=== PATIENT | male | born 1940 | race Caucasian/White ===

== ENCOUNTER → 2023-01-11 11:12 | Outpatient (BNVA) | payer MEDICARE, SELFPAY | PROVIDERS: PCP Internal Medicine; Visit Provider Orthopaedic Surgery | DX: M17.0 Bilateral primary osteoarthritis of knee (principal) | CPT/HCPCS: 20610; 99212; J3301 ==

== ENCOUNTER 2023-10-18 13:25 | Outpatient (AMB) | payer MEDICARE, SELFPAY ==
--- NOTE | 2023-10-18 13:30 | MHC.OFFVIS ---
Intake Vital Signs 10/18/23 13:33 Height 5 ft 9 in Weight 186 lb BMI 27.5 Intake Visit Reasons: OV-B/L knee pain-follow up Intake Note: John is a 82 year old male who presents with bilateral knee pain. Patient reports he had bilateral knee injections on 01/11/2023 and it gave him good relief. He would like to repeat the bilateral injections. He has taken Tylenol which gives him mild relief. He is not able to take anti-inflammatory medicines because he is on Eliquis. He wishes to hold off on surgery for as long as possible. Allergies Seasonal Allergies Adverse Reaction (Verified 10/18/23 13:35) Sneezing [facility] Social History (Updated 01/11/23 @ 11:28 by Isela Vogel [facility]) Current occupational status: retired Physical Exam Vital Signs: BMI result Body Mass Index 27.5 Const Other: Well-nourished well-developed very friendly male awake alert and oriented x3 in no acute distress Extrem Other: Bilateral lower extremity examination shows good capillary refill, no skin lesions noted, normal sensation light touch Bilateral knee examination shows minimal effusions, palpable crepitus with range of motion, pain with range of motion, range of motion from -3 degrees to 115 degrees, no instability Office Procedures Joint Injection/Drain Joint Injection/Drain Primary Site: left knee Prep: site was prepped using aseptic technique Injected: 40 mg of, DepoMedrol and 1% plain lidocaine Procedure: The patient tolerated the procedure well Coding 55546 - Large joint Procedure code (CPT) selection complete Joint Injection/Drain Joint Injection/Drain Primary Site: right knee Prep: site was prepped using aseptic technique Injected: 40 mg of, DepoMedrol and 1% plain lidocaine Procedure: The patient tolerated the procedure well Coding 13528 - Large joint Procedure code (CPT) selection complete Assessment & Plan Assessment & Plan (1) Arthritis of both knees: Code(s): M17.0 - Bilateral primary osteoarthritis of knee (2) Arthritis of left knee: Code(s): M17.12 - Unilateral primary osteoarthritis, left knee (3) Arthritis of right knee: Code(s): M17.11 - Unilateral primary osteoarthritis, right knee Plan Mr. Mcknight presents with bilateral knee pains due to degenerative joint disease. I had a lengthy discussion with the patient regarding the treatment options. Wishes to hold off on surgery for as long as possible. I agree with this plan. The risks and benefits of bilateral knee cortisone injections were discussed at length with the patient. The patient wished to proceed. He tolerated the injections well. I also gave him a prescription to go to formal physical therapy here at [facility]. Will follow-up as instructed. He will follow up with me on an as-needed basis should his symptoms not plateau at an unacceptable level over the next few months. Feel free to call me at any time should questions regarding his orthopedic management arise. I spent 22 minutes in reviewing the patient's records and imaging studies, seeing the patient and documenting in the medical record. Orders: Orders PT Evaluation and Treatment Today M17.0 - Bilateral primary osteoarthritis of knee, R53.81 - Other malaise AMB Joint Injection/Aspiration Today M17.12 - Unilateral primary osteoarthritis, left knee AMB Joint Injection/Aspiration Today M17.11 - Unilateral primary osteoarthritis, right knee Coding Level of Care Code Est Pt Level 2 (39320) Diagnoses Arthritis of both knees M17.0 Arthritis of left knee M17.12 Arthritis of right knee M17.11 CPT Codes Coding - 47644 Large joint: 10998 - Large joint ([id number]) Coding - 25766 Large joint: 06324 - Large joint ([id number])
[2023-10-18 13:33] VITALS: BMI 27.5
== END 2023-10-18 14:04 | disposition home or self-care (01) ==
PROVIDERS: PCP Internal Medicine; Visit Provider Orthopaedic Surgery
DX: M17.0 Bilateral primary osteoarthritis of knee (principal)
CPT/HCPCS: 20610; 99213

== ENCOUNTER → 2023-10-18 13:25 | Outpatient (BNVA) | payer MEDICARE, SELFPAY | PROVIDERS: PCP Internal Medicine; Visit Provider Orthopaedic Surgery | DX: M17.0 Bilateral primary osteoarthritis of knee (principal) | CPT/HCPCS: 20610; 99212; J1020 ==

== ENCOUNTER 2023-12-19 14:00 | Outpatient (RCR) | payer MEDICARE, SELFPAY ==
--- NOTE | 2023-11-14 16:27 | MHC.PT.EP ---
[facility] [place] Office [place] Office [place] Office [address] [place] [address] [phone] F: [phone] F: [phone] F: [phone] F: [phone] Physical Therapy Plan of Care Date of Evaluation: 11/14/23 Date of Surgery: NA Diagnosis: B OA KNEES, MENISCUS TEARS B Assessment: Pt IS 82 YO M REFERRED TO PT FROM [facility] (DR LUNDBERG) WITH B KNEE OA. 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 PRESENTS WITH LIMITED R LE STRENGTH, BALANCE ISSUES, ANTALGIC GT, LIMITED KNEE ROM AND EDEMA (?LYMPHEDEMA/CARDIAC HX). HAS HAD PT IN PAST FOR HIS KNEES WITH GOOD RESULTS. SHOULD BENEFIT FROM PT TO ADDRESS THESE ISSUES. MAY NEED AFO R ANKLE Frequency and Duration: The patient will be seen 2X/WK X 4 WKS THEN 1X/WK X 4 WKS Short Term Goals: 1. INCREASED AWARENESS POSTURE/KNEE CARE 2. INCREASED KNEE FLEXION ROM 5 DEGREES EACH 3. IMPROVED GT PATTERN WITH ROLLATOR Custodial Goals: 1. I HEP WITH DC EX PLAN 2. INCREASED L LE STRENGTH 1/2 MM GRADE 3. DECREASED KNEE PAIN ('EDEMA PAIN ) Treatment Plan: Modalities to reduce pain, spasms and effusion. Manual therapy to restore motion and function. Therapeutic exercise to improve strength and flexibility. Neuromuscular re-education for posture and balance. Therapeutic activities to return to functional activities of daily living. Electronically signed by: VALDO KING PT Please sign and return to therapist. Thank you for your referral.
--- NOTE | 2024-02-19 15:39 | MHC.PT.DC ---
[facility] [place] Office [place] Office [place] Office [address] [place] [address] [phone] F: [phone] F: [phone] F: [phone] F: [phone] Physical Therapy Discharge Report Diagnosis: B OA KNEES, MENISCUS TEARS B Date of Surgery: NA Date of Evaluation: 11/14/23 Date of Discharge: 02/19/24 Treatments to Date: 5 Cancellations to Date: No Shows to Date: Discharge Status: Achieved Goals Improved Function Independent with HEP Patient Elected to Stop Discharge Summary: PER ASSESSMENT FROM LAST NOTE ON 12/19/23 TODAY WAS Pt'S LAST SCHEDULED VISIT. HAS MET SOME PT GOALS, REPORTS OVERALL IMPROVEMENT. HE WOULD LIKE TO KEEP CHART OPEN AND TRY TO WORK ON EXS THEN CALL FOR FU IF NEEDED NO FURTHER APPTS SCHEDULED Electronically signed by: VALDO KING PT Please sign and return to therapist. Thank you for your referral.
== END 2024-02-19 15:40 | disposition home or self-care (01) ==
LOC: HO.PT 14:00
PROVIDERS: PCP Internal Medicine; Visit Provider Orthopaedic Surgery
DX: M17.0 Bilateral primary osteoarthritis of knee (principal); R53.81 Other malaise
CPT/HCPCS: 97110; 97162; 97535

== ENCOUNTER 2024-01-18 13:36 | Outpatient (AMB) | payer MEDICARE, SELFPAY ==
--- NOTE | 2024-01-18 13:37 | MHC.OFFVIS ---
Vital Signs 01/18/24 13:38 Height 5 ft 9 in Weight 186 lb BMI 27.5 Intake Visit Reasons: OV-B/L knee pain-follow up Intake Note: Mr. Mcknight presents with complaints of progressively worsening bilateral knee pains. He describes his pains as sharp and severe in nature. His pains have gotten worse over the last year in spite of continued non operative treatments. He has failed the last 3 months of a home exercise program. He has tried Tylenol which gives him minimal relief. He is not able to take anti-inflammatory medicines because he is on Eliquis. He did have a set of cortisone injections given into his knees earlier this year which gave him no relief. He has not had a viscosupplementation injection. He wishes to hold off on total knee replacement surgery if at all possible. Allergies Seasonal Allergies Adverse Reaction (Verified 01/18/24 13:40) Sneezing Medication List - Last Reconciled 01/19/24 by Jaspal Blood MD apixaban (Eliquis) 5 mg PO BID finasteride 5 mg PO DAILY furosemide (Lasix) 20 mg PO DAILY tamsulosin 0.4 mg PO DAILY [facility] Social History Current occupational status: retired Physical Exam Vital Signs: BMI result Body Mass Index 27.5 Const Other: Well-nourished well-developed very friendly male awake alert and oriented x3 in no acute distress Extrem Other: Bilateral lower extremity examination shows good capillary refill, no skin lesions noted, normal sensation light touch Bilateral knee examination shows minimal effusions, palpable crepitus with range of motion, pain with range of motion, range of motion from -3 degrees to 110 degrees, no instability Results Reviewed Results Reviewed: X-rays of the patient's bilateral knee show joint space narrowing, subchondral sclerosis, no acute bony abnormalities Assessment & Plan Assessment & Plan (1) Arthritis of right knee: Code(s): M17.11 - Unilateral primary osteoarthritis, right knee Category: Medical (2) Arthritis of left knee: Code(s): M17.12 - Unilateral primary osteoarthritis, left knee Category: Medical Plan Mr. Mcknight presents with bilateral knee pains due to degenerative joint disease. I had a lengthy discussion with the patient regarding the treatment options. He wishes to hold off on total knee replacement surgery for as long as possible. I agree with this plan. Has not gotten good relief from cortisone injections in the past. Thus, I will see whether or not the patient's insurance company will cover a viscosupplementation injection for both of his knees. I will see him back once the injections are available. Feel free to call me at any time should questions regarding his orthopedic management arise. I spent 22 minutes in reviewing the patient's records and imaging studies, seeing the patient and documenting in the medical record. Coding Level of Care Code Est Pt Level 3 (14677) Diagnoses Arthritis of right knee M17.11 Arthritis of left knee M17.12
[2024-01-18 13:38] VITALS: BMI 27.5
== END 2024-01-18 14:05 | disposition home or self-care (01) ==
PROVIDERS: PCP Internal Medicine; Visit Provider Orthopaedic Surgery
DX: M17.0 Bilateral primary osteoarthritis of knee (principal)
CPT/HCPCS: 99213

== ENCOUNTER → 2024-01-18 13:36 | Outpatient (BNVA) | payer MEDICARE, SELFPAY | PROVIDERS: PCP Internal Medicine; Visit Provider Orthopaedic Surgery | DX: M17.0 Bilateral primary osteoarthritis of knee (principal) | CPT/HCPCS: 99212 ==

== ENCOUNTER 2024-02-28 11:42 | Outpatient (AMB) | payer MEDICARE, SELFPAY ==
--- NOTE | 2024-02-28 11:43 | A.OFFVIS_ITS ---
Intake Visit Reasons: B/L Durolane Knee Injection Intake Note: Clint is a 83 year old male who presents with complaints of bilateral knee pains. He describes his pains as sharp in nature. His pains have gotten worse over the last few years in spite of continued non operative treatments. He wishes to hold off on surgery for as long as possible. He has had cortisone injections. The most recent set of injections gave him minimal relief. Has also done physical therapy exercises which aggravated his pain. Has tried Tylenol which gives him minimal relief. He can not take anti-inflammatory medicines because he is on Eliquis. Allergies Seasonal Allergies Adverse Reaction (Verified 02/28/24 11:43) Sneezing Medication List - Last Reconciled 02/29/24 by Jaspal Blood MD apixaban (Eliquis) 5 mg PO BID finasteride 5 mg PO DAILY furosemide (Lasix) 20 mg PO DAILY tamsulosin 0.4 mg PO DAILY PFSH Social History Current occupational status: retired Physical Exam Const Other: Well-nourished well-developed very friendly male awake alert and oriented x3 in no acute distress Extrem Other: Bilateral lower extremity examination shows good capillary refill, no skin lesions noted, normal sensation light touch Bilateral knee examination shows minimal effusions, palpable crepitus with range of motion, pain with range of motion, no instability Office Procedures Joint Injection/Aspiration Joint Injection/Aspiration Primary Site: left knee Prep: site was prepped using aseptic technique Injected: 60 mg of (Durolane viscosupplementation) and 1% plain lidocaine Procedure: The patient tolerated the procedure well Coding 22657 - Large joint Procedure code (CPT) selection complete Joint Injection/Aspiration Joint Injection/Aspiration Primary Site: right knee Prep: site was prepped using aseptic technique Injected: 60 mg of (Durolane viscosupplementation) and 1% plain lidocaine Procedure: The patient tolerated the procedure well Coding 65707 - Large joint Procedure code (CPT) selection complete Results Reviewed Results Reviewed: X-rays of the patient's bilateral knees taken previously show joint space narrowing, subchondral sclerosis, osteophyte formation, no acute bony abnormalities Assessment & Plan Assessment & Plan (1) Arthritis of left knee: Code(s): M17.12 - Unilateral primary osteoarthritis, left knee Category: Medical (2) Arthritis of right knee: Code(s): M17.11 - Unilateral primary osteoarthritis, right knee Category: Medical Plan Mr. Mcknight presents with bilateral knee pains due to degenerative joint disease. I had a lengthy discussion with the patient regarding the treatment options. Wishes to hold off on surgery for as long as possible. I agree with this plan. The risks and benefits of bilateral knee Durolane viscosupplementation injections were discussed at length with the patient. The patient wished to proceed. He tolerated the injections well. He will continue with his home exercise program. Will follow up with me on an as-needed basis should his symptoms not plateau at an unacceptable level over the next few months. Feel free to call me at any time should questions regarding his orthopedic management arise. I spent 21 minutes in reviewing the patient's records and imaging studies, seeing the patient and documenting in the medical record. Orders: Orders AMB Joint Injection/Aspiration 02/28/24 M17.12 - Unilateral primary osteoarthr itis, left knee AMB Joint Injection/Aspiration 02/28/24 M17.11 - Unilateral primary osteoarthritis, right knee Coding Level of Care Code Est Pt Level 3 (70097) Diagnoses Arthritis of left knee M17.12 Arthritis of right knee M17.11 CPT Codes Coding - 49254 Large joint: 40883 - Large joint ([id number]) Coding - 91457 Large joint: 08516 - Large joint ([id number])
== END 2024-02-28 12:13 | disposition home or self-care (01) ==
PROVIDERS: PCP Internal Medicine; Visit Provider Orthopaedic Surgery
DX: M17.0 Bilateral primary osteoarthritis of knee (principal)
CPT/HCPCS: 20610; 99213

== ENCOUNTER → 2024-02-28 11:42 | Outpatient (BNVA) | payer MEDICARE, SELFPAY | PROVIDERS: PCP Internal Medicine; Visit Provider Orthopaedic Surgery | DX: M17.0 Bilateral primary osteoarthritis of knee (principal) | CPT/HCPCS: 20610; 99212; J7318 ==

== ENCOUNTER 2024-05-29 13:31 | Outpatient (AMB) | payer MEDICARE, SELFPAY ==
--- NOTE | 2024-05-29 13:49 | A.OFFVIS_ITS ---
Intake Visit Reasons: OV - B/L Knee OA Intake Note: Clint is a 83 year old male who presnets today with complaints of progressively worsening bilateral knee pains. He describes his pains as sharp and severe in nature, 05/02. He has had cortisone injections in the past which gave him no relief. He has also had Durolane viscosupplementation injections which gave him very good relief. He wishes to hold off on total knee replacement surgery for as long as possible. He has tried Tylenol which gives him minimal relief. He is not able to take anti-inflammatory medicines because he is on Eliquis. Allergies Seasonal Allergies Adverse Reaction (Verified 05/29/24 13:50) Sneezing Medication List - Last Reconciled 05/29/24 by Jaspal Blood MD apixaban (Eliquis) 5 mg PO BID finasteride 5 mg PO DAILY furosemide (Lasix) 20 mg PO DAILY tamsulosin 0.4 mg PO DAILY PFSH Social History Current occupational status: retired Physical Exam Const Other: Well-nourished well-developed very friendly male awake alert and oriented x3 in no acute distress Extrem Other: Bilateral lower extremity examination shows good capillary refill, no skin lesions noted, normal sensation light touch Bilateral knee examination shows minimal effusions, palpable crepitus with range of motion, pain with range of motion, no instability Results Reviewed Results Reviewed: X-rays of the patient's bilateral knees taken previously show joint space narrowing, subchondral sclerosis, no acute bony abnormalities Assessment & Plan Assessment & Plan (1) Osteoarthritis of left knee: Code(s): M17.12 - Unilateral primary osteoarthritis, left knee Category: Medical (2) Osteoarthritis of right knee: Code(s): M17.11 - Unilateral primary osteoarthritis, right knee Category: Medical Plan Mr. Mcknight presents with bilateral knee pains due to osteoarthritis. I had a lengthy discussion with the patient regarding the treatment options. He has not gotten good relief from cortisone injections in the past. He wishes to hold off on total knee replacement surgery for as long as possible. I agree with this plan. I will see whether or not the patient's insurance company will cover a another Durolane injection for both of his knees. I will see him back once the injections are available. Feel free to call me at any time should questions regarding his orthopedic management arise. I spent 22 minutes in reviewing the patient's records and imaging studies, seeing the patient and documenting in the medical record. Coding Level of Care Code Est Pt Level 3 (50941) Complex EM visit Add On G2211 Diagnoses Osteoarthritis of left knee M17.12 Osteoarthritis of right knee M17.11
== END 2024-05-29 14:07 | disposition home or self-care (01) ==
PROVIDERS: PCP Internal Medicine; Visit Provider Orthopaedic Surgery
DX: M17.0 Bilateral primary osteoarthritis of knee (principal)
CPT/HCPCS: 99213; G2211

== ENCOUNTER → 2024-05-29 13:31 | Outpatient (BNVA) | payer MEDICARE, SELFPAY | PROVIDERS: PCP Internal Medicine; Visit Provider Orthopaedic Surgery | DX: M17.0 Bilateral primary osteoarthritis of knee (principal); Z79.01 Long term (current) use of anticoagulants | CPT/HCPCS: 99212 ==